=== PATIENT | male | born 1960 | race Caucasian/White ===

== ENCOUNTER 2024-05-31 08:20 | Day surgery (SDC) | payer OTHER ==
[~2024-05-31 08:20] MED LIST: Sodium Chloride 0.9% 10 ML Syringe FLUSH PRN; Sodium Chloride 0.9% 10 ML Syringe FLUSH SCH
[2024-05-31] MEDS: Lactated Ringers 1,000 ML IV SCH (08:40)
[2024-05-31] MEDS ORDERED: Propofol 200 MG/20 ML SDV ONE ×2 (09:29→10:06)
[2024-05-31] MEDS ORDERED: Lidocaine 1% 2 ML ONE ×2 (09:30→09:49)
[2024-05-31] MEDS ORDERED: ePHEDrine 50 MG/ML SDV ONE (10:00)
== END 2024-05-31 10:52 | disposition home or self-care (01) ==
LOC: JD.SDS 08:20
PROVIDERS: ATTEND Surgery
DX: Z12.11 Encounter for screening for malignant neoplasm of colon (principal); K57.30 Diverticulosis of large intestine without perforation or abscess without bleeding; K64.8 Other hemorrhoids; Z88.0 Allergy status to penicillin
CPT/HCPCS: 45378; J2704; J7120; J3490

== ENCOUNTER 2025-03-31 19:23 | Inpatient (IN) | payer OTHER ==
[~2025-03-31 19:23] MED LIST changes: +Lactated Ringers 1,000 ML IV ONE; -Sodium Chloride 0.9% 10 ML Syringe FLUSH PRN; -Sodium Chloride 0.9% 10 ML Syringe FLUSH SCH
[2025-03-31 19:55] LABS: BASOPHILS ABSOLUTE AUTO 0.1 K/mm3 (0.0-0.2); BASOPHILS PERCENT AUTO 0.6 % (0.0-1.0); EOSINOPHILS ABSOLUTE AUTO 0.2 K/mm3 (0.0-0.4); EOSINOPHILS PERCENT AUTO 2.8 % (0.0-6.0); IMMATURE GRAN ABSOLUTE AUTO 0.03 K/mm3 (0.00-0.05); IMMATURE GRAN PERCENT AUTO 0.4 % (0.0-0.4); LYMPHOCYTES ABSOLUTE AUTO 2.2 K/mm3 (1.0-4.8); LYMPHOCYTES PERCENT AUTO 28.6 % (24.0-44.0); MEAN PLATELET VOLUME 9.0 fl (9.4-12.4); MONOCYTES ABSOLUTE AUTO 0.9 K/mm3 (0.0-0.8); MONOCYTES PERCENT AUTO 11.3 % (0.0-8.0); NEUTROPHILS ABSOLUTE AUTO 4.4 K/mm3 (1.8-7.7); NEUTROPHILS PERCENT AUTO 56.3 % (41.0-71.0); NRBC ABSOLUTE 0.00 (0.00-0.02); NRBC PERCENT 0.0 % (0.0-0.2); PLATELET COUNT,PLT 346 K/mm3 (150-400); RED BLOOD CELL COUNT 5.28 M/mm3 (4.52-5.90); WHITE BLOOD CELL COUNT,WBC 7.73 K/mm3 (3.9-11.3)
[2025-03-31] MEDS ORDERED: Naloxone 0.4 MG/ML SDV IVPUSH PRN ×2 (19:56→21:05)
[2025-03-31] MEDS ORDERED: Sodium Chloride 0.9% 10 ML Syringe FLUSH PRN (20:15)
[2025-03-31 20:21] LABS: A/G RATIO 1.2 (1-2); ALANINE AMINOTRANSFERASE,ALT 45.0 U/L (16-63); ASPARTATE AMNIOTRANSFERASE,AST 40.0 U/L (15-37); BILIRUBIN TOTAL 0.6 mg/dL (0.2-1.0); BLOOD UREA NITROGEN,BUN 17.0 mg/dL (7-18); CARBON DIOXIDE,CO2 29.0 mEq/L (21-32); CHLORIDE,CL 104.0 mEq/L (98-107); CREATININE 1.1 mg/dL (0.7-1.3); EST CRCL DRUG DOSING (CG) 61.22 mL/min; ESTIMATED GFR 75.0 mL/min (>60); GLUCOSE RANDOM 107.0 mg/dL (70-99); PROTEIN TOTAL,TP 7.4 g/dl (6.4-8.2); SODIUM,NA 142.0 mEq/L (136-145); TROPONIN I HIGH SENSITIVITY 6.0 pg/mL (<=76)
[2025-03-31 20:29] LABS: POTASSIUM,K 3.8 mEq/L (3.5-5.1)
[2025-03-31] MEDS: Iopamidol 755 Mg/ML 100 ML Bottle IVPUSH ONE (20:36)
[2025-03-31] MEDS: Sodium Chloride 0.9% 10 ML Syringe FLUSH PRN (20:36)
[2025-03-31] MEDS: Ondansetron 4 MG/2 ML SDV IVPUSH ONE (21:21)
[2025-03-31] MEDS ORDERED: Propofol 200 MG/20 ML SDV ONE (21:34)
[2025-03-31] MEDS ORDERED: Phenylephrine 1% 10 MG/ML SDV ONE (21:34)
[2025-03-31] MEDS ORDERED: Ondansetron 4 MG/2 ML SDV ONE (21:34)
[2025-03-31] MEDS ORDERED: Dexamethasone 4 MG/ML 5 ML MDV ONE (21:34)
[2025-03-31] MEDS ORDERED: fentaNYL 250 MCG/5 ML SDV ONE (21:35)
[2025-03-31] MEDS: Benzocaine 20% Topical Spray UD MUCMEM ONE (22:38)
[2025-03-31] MEDS ORDERED: Lactated Ringers 1,000 ML IV ONE (23:00)
[2025-03-31] MEDS ORDERED: fentaNYL 100 MCG/2 ML SDV IVPUSH PRN (23:44)
[2025-04-01] MEDS ORDERED: Ondansetron 4 MG/2 ML SDV IV PRN (00:40)
[2025-04-01] MEDS: Lidocaine 1% with EPINEPHrine 1:100,000 20 ML MDV ONE (00:53)
[2025-04-01 07:05] LABS: BASOPHILS ABSOLUTE AUTO 0.0 K/mm3 (0.0-0.2); BASOPHILS PERCENT AUTO 0.2 % (0.0-1.0); EOSINOPHILS ABSOLUTE AUTO 0.0 K/mm3 (0.0-0.4); EOSINOPHILS PERCENT AUTO 0.0 % (0.0-6.0); IMMATURE GRAN ABSOLUTE AUTO 0.04 K/mm3 (0.00-0.05); IMMATURE GRAN PERCENT AUTO 0.3 % (0.0-0.4); LYMPHOCYTES ABSOLUTE AUTO 0.5 K/mm3 (1.0-4.8); LYMPHOCYTES PERCENT AUTO 3.8 % (24.0-44.0); MEAN PLATELET VOLUME 9.1 fl (9.4-12.4); MONOCYTES ABSOLUTE AUTO 0.6 K/mm3 (0.0-0.8); MONOCYTES PERCENT AUTO 4.8 % (0.0-8.0); NEUTROPHILS ABSOLUTE AUTO 11.3 K/mm3 (1.8-7.7); NEUTROPHILS PERCENT AUTO 90.9 % (41.0-71.0); NRBC ABSOLUTE 0.00 (0.00-0.02); NRBC PERCENT 0.0 % (0.0-0.2); PLATELET COUNT,PLT 299 K/mm3 (150-400); RED BLOOD CELL COUNT 5.29 M/mm3 (4.52-5.90); WHITE BLOOD CELL COUNT,WBC 12.47 K/mm3 (3.9-11.3)
[2025-04-01 07:16] LABS: BLOOD UREA NITROGEN,BUN 17.0 mg/dL (7-18); CARBON DIOXIDE,CO2 29.0 mEq/L (21-32); CHLORIDE,CL 107.0 mEq/L (98-107); CREATININE 1.1 mg/dL (0.7-1.3); EST CRCL DRUG DOSING (CG) 61.22 mL/min; ESTIMATED GFR 75.0 mL/min (>60); GLUCOSE RANDOM 178.0 mg/dL (70-99); POTASSIUM,K 4.7 mEq/L (3.5-5.1); SODIUM,NA 142.0 mEq/L (136-145)
[2025-04-02 04:52] LABS: MEAN PLATELET VOLUME 9.1 fl (9.4-12.4); NRBC ABSOLUTE 0.00 (0.00-0.02); NRBC PERCENT 0.0 % (0.0-0.2); PLATELET COUNT,PLT 290 K/mm3 (150-400); RED BLOOD CELL COUNT 4.89 M/mm3 (4.52-5.90); WHITE BLOOD CELL COUNT,WBC 12.32 K/mm3 (3.9-11.3)
[2025-04-02 05:07] LABS: BLOOD UREA NITROGEN,BUN 16.0 mg/dL (7-18); CARBON DIOXIDE,CO2 24.0 mEq/L (21-32); CHLORIDE,CL 104.0 mEq/L (98-107); CREATININE 0.9 mg/dL (0.7-1.3); EST CRCL DRUG DOSING (CG) 74.83 mL/min; ESTIMATED GFR 95.0 mL/min (>60); GLUCOSE RANDOM 118.0 mg/dL (70-99); POTASSIUM,K 4.1 mEq/L (3.5-5.1); SODIUM,NA 137.0 mEq/L (136-145)
== END 2025-04-04 11:19 | disposition home or self-care (01) | DRG 337 ==
LOC: JD.ED 19:23 → JD.SDS 22:30 → JD.MS 04-01 00:38 → JD.SDS 04-01 00:39
PROVIDERS: ADMIT Surgery; ATTEND Surgery
PROC: 0DN80ZZ Release Small Intestine, Open Approach (ICD-10-PCS; principal; 2025-04-01)
DX: K56.50 Intestinal adhesions [bands], unspecified as to partial versus complete obstruction (principal); K56.7 Ileus, unspecified; Z88.0 Allergy status to penicillin; Z86.16 Personal history of COVID-19; Z90.79 Acquired absence of other genital organ(s); Z79.899 Other long term (current) drug therapy
CPT/HCPCS: 36415; 71045; 71045-26; 74018; 74018-26; 74177; 74177-26; 80048; 80053; 83690; 83880; 84484; 85025; 85027; 86140; 93005; 93010; 94760; 94761; 96361; 96374; 96375; 96376; 99284; 99285-25; J0665; J0690; J1100; J1171; J1650; J2003; J2004; J2371; J2405; J2704; J3010; J3490; J7030; J7120; Q9967